=== PATIENT | female | born 1965 | race Caucasian/White ===

== ENCOUNTER 2022-07-07 11:12 | Outpatient (CLI) | payer OTHER, SELFPAY ==
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
== END 2022-07-07 11:13 | disposition home or self-care (01) ==
PROVIDERS: Visit Provider Dermatology
DX: Z02.71 Encounter for disability determination (principal); M79.604 Pain in right leg
CPT/HCPCS: 73552; 73590

== ENCOUNTER 2023-09-22 14:26 | Outpatient (CLI) | payer MEDICAID, SELFPAY ==
--- NOTE | 2023-09-22 14:33 | XR_ITS ---
WS: [id number] Thoracic spine, 3 views, 09/22/2023 Clinical Data: THORACIC SPINE PAIN Comparison: None. Findings: No compression fractures are seen. The disc heights are normal. There is a dextroscoliosis of the thoracic spine. Mild osteoarthritic change of the thoracic vertebra l bodies is seen. The patient has bilateral augmentation mammoplasty implants. XR/XR thoracic spine 3V* [id number] Impression: 1. Mild osteoarthritis of the thoracic vertebral bodies. 2. Dextroscoliosis.
== END 2023-09-22 14:27 | disposition home or self-care (01) ==
LOC: RAD 14:31
PROVIDERS: PCP Nurse Practitioner; Visit Provider Nurse Practitioner
DX: M54.6 Pain in thoracic spine (principal); M41.9 Scoliosis, unspecified; M47.814 Spondylosis without myelopathy or radiculopathy, thoracic region
CPT/HCPCS: 72072